=== PATIENT | female | born 1925 | race Native Hawaiian/Other Pacific Islander ===

== ENCOUNTER 2016-05-01 10:18 | Inpatient (IN) | payer OTHER ==
[~2016-05-01 10:18] MED LIST: ALLEGRA ALRG180 M1 PO; AMLO5TAB PO; AMOX500C85 PO; ASPIRIN325 M1 OR; CALCIUM500 M1 PO; CARV3.12 PO; CARV6.25 PO; EQL ASPIRIN325 MG OR; EQL FOLIC ACI400 MCG OR; FISH OIL1000 M1 OR; FLAX SEED OIL1300 MG OR; LEVO0.0218 PO; LEVO0.0529 PO; LISI10TA11 PO; MAGNESIUM1 TAB PO; PRADAXA150 MG OR; SIMV20TA2 PO; TRIM800T12 PO; VITAMIN D2000 UNIT PO
== END 2016-06-01 08:00 | disposition still patient (30) ==
LOC: PAVC 10:18
PROVIDERS: ADMIT Internal Medicine
DX: Z51.89 Encounter for other specified aftercare (principal)

== ENCOUNTER 2016-06-01 09:00 | Inpatient (IN) | payer OTHER ==
[~2016-06-01] VITALS: Ht 170.2 cm; Wt 59.0 kg
== END 2016-07-02 12:36 | disposition still patient (30) ==
LOC: PAVC 09:00
PROVIDERS: ADMIT Internal Medicine
DX: Z51.89 Encounter for other specified aftercare (principal)
CPT/HCPCS: J0696

== ENCOUNTER 2016-06-13 16:17 | Outpatient (CLI) | payer OTHER, BC | END 2016-06-13 21:44 | disposition home or self-care (01) | LOC: LAB 16:17 | DX: N39.0 Urinary tract infection, site not specified (principal) | CPT/HCPCS: 81000; 87077; 87086; 87088; 87186 ==

== ENCOUNTER 2016-06-16 13:54 | Outpatient (CLI) | payer OTHER, BC ==
[~2016-06-16] VITALS: Ht 152.4 cm; Wt 1.8 kg
[2016-06-16 13:55] VITALS: BP 91/45; TEMP 98.5
== END 2016-06-16 22:11 | disposition home or self-care (01) ==
LOC: INF 13:54
DX: N39.0 Urinary tract infection, site not specified (principal)
CPT/HCPCS: 96365; J0696

== ENCOUNTER 2016-06-17 13:51 | Outpatient (CLI) | payer OTHER, BC ==
[2016-06-17 14:00] VITALS: BP 94/51; TEMP 98.5
[2016-06-17 14:50] VITALS: BP 99/54; TEMP 98.4
== END 2016-06-17 14:50 | disposition home or self-care (01) ==
LOC: INF 13:51
DX: N39.0 Urinary tract infection, site not specified (principal)
CPT/HCPCS: 96365; J0696

== ENCOUNTER 2016-06-18 14:22 | Outpatient (CLI) | payer OTHER, BC ==
[~2016-06-18] VITALS: Ht 170.2 cm; Wt 59.0 kg
[2016-06-18 14:30] VITALS: BP 95/49; TEMP 97.7
[2016-06-18 15:20] VITALS: BP 102/56; TEMP 97.6
== END 2016-06-18 19:35 | disposition home or self-care (01) ==
LOC: INF 14:22
DX: N39.0 Urinary tract infection, site not specified (principal)
CPT/HCPCS: 96365; J0696

== ENCOUNTER 2016-06-19 14:15 | Outpatient (CLI) | payer OTHER, BC ==
[2016-06-19 14:20] VITALS: BP 128/72; TEMP 97.7
[2016-06-19 15:29] VITALS: BP 109/69; TEMP 97.7
== END 2016-06-19 19:20 | disposition home or self-care (01) ==
LOC: INF 14:15
DX: N39.0 Urinary tract infection, site not specified (principal)
CPT/HCPCS: 96365; J0696

== ENCOUNTER 2016-06-20 13:59 | Outpatient (CLI) | payer OTHER, BC ==
[~2016-06-20] VITALS: Ht 170.2 cm; Wt 59.0 kg
[2016-06-20 14:34] VITALS: BP 105/57; TEMP 98.6
== END 2016-06-20 15:10 | disposition home or self-care (01) ==
LOC: INF 13:59
DX: N39.0 Urinary tract infection, site not specified (principal)
CPT/HCPCS: 96365; J0696

== ENCOUNTER 2016-06-21 13:09 | Outpatient (CLI) | payer OTHER, BC | END 2016-06-21 17:16 | disposition home or self-care (01) | LOC: INF 13:09 | DX: N39.0 Urinary tract infection, site not specified (principal) | CPT/HCPCS: 96365; J0696 ==

== ENCOUNTER 2016-06-22 17:26 | Outpatient (CLI) | payer OTHER, BC | END 2016-06-22 19:11 | disposition home or self-care (01) | LOC: INF 17:26 | DX: N39.0 Urinary tract infection, site not specified (principal) | CPT/HCPCS: 96365; J0696 ==

== ENCOUNTER 2016-07-02 12:56 | Inpatient (IN) | payer OTHER | END 2016-07-30 13:21 | disposition still patient (30) | LOC: PAVC 12:56 | PROVIDERS: ADMIT Internal Medicine | DX: Z51.89 Encounter for other specified aftercare (principal) ==

== ENCOUNTER 2016-07-30 13:40 | Inpatient (IN) | payer OTHER | END 2016-08-30 08:13 | disposition still patient (30) | LOC: PAVC 13:40 | PROVIDERS: ADMIT Internal Medicine | DX: Z51.89 Encounter for other specified aftercare (principal) ==

== ENCOUNTER 2016-08-01 04:45 | Outpatient (CLI) | payer OTHER ==
[2016-08-01 05:46] LABS: PLATELET COUNT 465 K/uL (152-353)
[2016-08-01 06:25] LABS: POTASSIUM 4.8 mmol/L (3.6-5.2)
== END 2016-08-01 19:11 | disposition home or self-care (01) ==
LOC: LAB 04:45
PROVIDERS: Internal Medicine
DX: I48.91 Unspecified atrial fibrillation (principal); I63.50 Cerebral infarction due to unspecified occlusion or stenosis of unspecified cerebral artery
CPT/HCPCS: 80053; 82746; 84443; 85027

== ENCOUNTER 2016-08-12 16:24 | Outpatient (CLI) | payer OTHER, BC ==
[2016-08-12 18:26] LABS: POTASSIUM 4.9 mmol/L (3.6-5.2)
[2016-08-12 18:31] LABS: PLATELET COUNT 469 K/uL (152-353)
== END 2016-08-12 19:34 | disposition home or self-care (01) ==
LOC: LAB 16:24 → RAD 16:24 → LAB 19:34
PROVIDERS: Internal Medicine
DX: R07.89 Other chest pain (principal); R79.89 Other specified abnormal findings of blood chemistry; R82.99 Other abnormal findings in urine; N39.0 Urinary tract infection, site not specified
CPT/HCPCS: 80053; 81000; 85027; 87077; 87086; 87088; 87186

== ENCOUNTER 2016-08-15 13:50 | Outpatient (CLI) | payer OTHER, BC ==
[~2016-08-15] VITALS: Ht 152.4 cm; Wt 1.8 kg
[2016-08-15 14:05] VITALS: BP 115/57; TEMP 98.3
== END 2016-08-15 15:30 | disposition home or self-care (01) ==
LOC: INF 13:50
DX: N39.0 Urinary tract infection, site not specified (principal)
CPT/HCPCS: 96365; J0696

== ENCOUNTER 2016-08-16 09:38 | Outpatient (CLI) | payer OTHER, BC | END 2016-08-16 10:38 | disposition home or self-care (01) | LOC: INF 09:38 | DX: N39.0 Urinary tract infection, site not specified (principal) | CPT/HCPCS: 96365; J0696 ==

== ENCOUNTER 2016-08-17 08:36 | Outpatient (CLI) | payer OTHER, BC | END 2016-08-17 18:54 | disposition home or self-care (01) | LOC: INF 08:36 | DX: N39.0 Urinary tract infection, site not specified (principal) | CPT/HCPCS: 96365; J0696 ==

== ENCOUNTER 2016-08-18 09:47 | Outpatient (CLI) | payer OTHER, BC ==
[~2016-08-18] VITALS: Ht 170.2 cm; Wt 61.0 kg
[2016-08-18 10:00] VITALS: BP 110/56; TEMP 98.1
== END 2016-08-18 19:20 | disposition home or self-care (01) ==
LOC: INF 09:47
DX: N39.0 Urinary tract infection, site not specified (principal)
CPT/HCPCS: 96365; J0696

== ENCOUNTER 2016-08-19 10:29 | Outpatient (CLI) | payer OTHER, BC ==
[~2016-08-19] VITALS: Ht 170.2 cm; Wt 60.8 kg
[2016-08-19 10:40] VITALS: BP 98/76; TEMP 97.7
[2016-08-19 11:30] VITALS: BP 121/67; TEMP 97.7
== END 2016-08-19 19:14 | disposition home or self-care (01) ==
LOC: INF 10:29
DX: N39.0 Urinary tract infection, site not specified (principal)
CPT/HCPCS: 96365; J0696

== ENCOUNTER 2016-08-21 09:05 | Outpatient (CLI) | payer OTHER, BC ==
[~2016-08-21] VITALS: Ht 170.2 cm; Wt 61.0 kg
[2016-08-21 09:10] VITALS: BP 104/51; TEMP 97.9
[2016-08-21 10:20] VITALS: BP 109/54; TEMP 97.9
== END 2016-08-21 21:01 | disposition home or self-care (01) ==
LOC: INF 09:05
DX: N39.0 Urinary tract infection, site not specified (principal)
CPT/HCPCS: 96365; J0696

== ENCOUNTER 2016-08-29 14:01 | Emergency (ER) | payer OTHER, BC ==
[~2016-08-29] VITALS: Ht 170.2 cm; Wt 62.6 kg
[2016-08-29 15:50] LABS: PLATELET COUNT 456 K/uL (152-353)
[2016-08-29 15:54] LABS: POTASSIUM 4.1 mmol/L (3.6-5.2)
[2016-08-29 17:10] VITALS: BP 125/55; TEMP 97.6
== END 2016-08-29 17:20 ==
LOC: ED 14:01
DX: G45.8 Other transient cerebral ischemic attacks and related syndromes (principal); I48.91 Unspecified atrial fibrillation
CPT/HCPCS: 36415; 80053; 81000; 85027; 93005; 99283

== ENCOUNTER 2016-08-30 08:47 | Inpatient (IN) | payer OTHER ==
[2016-09-01] MEDS ORDERED: FOLIC ACI1 PO (21:21)
[2016-09-01] MEDS ORDERED: CULTURELL3 PO (21:21)
[2016-09-01] MEDS ORDERED: MULTIVITAMI1 PO (21:22)
[2016-09-01] MEDS ORDERED: FURO20TA67 PO (21:22)
[2016-09-01] MEDS ORDERED: PROTEINE1 PO (21:23)
[2016-09-01] MEDS ORDERED: ASCO500T18 PO (21:23)
[2016-09-01] MEDS ORDERED: LISI10TA11 PO (21:24)
[2016-09-01] MEDS ORDERED: MAGNSUS68 PO (21:24)
[2016-09-01] MEDS ORDERED: TRAM50TA PO (21:25)
[2016-09-09] MEDS ORDERED: CULTURELL3 OR (18:17)
== END 2016-09-29 10:57 | disposition still patient (30) ==
LOC: PAVC 08:47
PROVIDERS: ADMIT Internal Medicine
DX: R13.10 Dysphagia, unspecified (principal); M62.81 Muscle weakness (generalized); R65.20 Severe sepsis without septic shock; R47.01 Aphasia; N39.0 Urinary tract infection, site not specified; J90 Pleural effusion, not elsewhere classified; I50.9 Heart failure, unspecified
CPT/HCPCS: 99283

== ENCOUNTER 2016-08-31 08:38 | Emergency (ER) | payer OTHER ==
[~2016-08-31] VITALS: Ht 172.7 cm; Wt 61.7 kg
[2016-08-31 09:56] VITALS: BP 142/60; TEMP 98
[2016-09-01] MEDS ORDERED: CULTURELL3 PO (21:21)
[2016-09-01] MEDS ORDERED: FOLIC ACI1 PO (21:21)
[2016-09-01] MEDS ORDERED: MULTIVITAMI1 PO (21:22)
[2016-09-01] MEDS ORDERED: FURO20TA67 PO (21:22)
[2016-09-01] MEDS ORDERED: ASCO500T18 PO (21:23)
[2016-09-01] MEDS ORDERED: PROTEINE1 PO (21:23)
[2016-09-01] MEDS ORDERED: LISI10TA11 PO (21:24)
[2016-09-01] MEDS ORDERED: MAGNSUS68 PO (21:24)
[2016-09-01] MEDS ORDERED: TRAM50TA PO (21:25)
== END 2016-08-31 10:10 ==
LOC: ED 08:38
DX: R47.81 Slurred speech (principal); Z86.73 Personal history of transient ischemic attack (TIA), and cerebral infarction without residual deficits; R20.0 Anesthesia of skin; R29.810 Facial weakness
CPT/HCPCS: 99283

== ENCOUNTER 2016-09-01 15:13 | Outpatient (CLI) | payer OTHER ==
[2016-09-01] MEDS ORDERED: CULTURELL3 PO (21:21)
[2016-09-01] MEDS ORDERED: FOLIC ACI1 PO (21:21)
[2016-09-01] MEDS ORDERED: FURO20TA67 PO (21:22)
[2016-09-01] MEDS ORDERED: MULTIVITAMI1 PO (21:22)
[2016-09-01] MEDS ORDERED: ASCO500T18 PO (21:23)
[2016-09-01] MEDS ORDERED: PROTEINE1 PO (21:23)
[2016-09-01] MEDS ORDERED: MAGNSUS68 PO (21:24)
[2016-09-01] MEDS ORDERED: LISI10TA11 PO (21:24)
[2016-09-01] MEDS ORDERED: TRAM50TA PO (21:25)
== END 2016-09-01 16:13 | disposition home or self-care (01) ==
LOC: MRI 15:13
DX: R47.81 Slurred speech (principal)

== ENCOUNTER 2016-09-01 20:59 | Observation (INO) | payer OTHER, BC ==
[~2016-09-01] VITALS: Ht 172.7 cm; Wt 61.5 kg
[2016-09-01] MEDS ORDERED: CULTURELL3 PO (21:21)
[2016-09-01] MEDS ORDERED: FOLIC ACI1 PO (21:21)
[2016-09-01] MEDS ORDERED: MULTIVITAMI1 PO (21:22)
[2016-09-01] MEDS ORDERED: FURO20TA67 PO (21:22)
[2016-09-01] MEDS ORDERED: PROTEINE1 PO (21:23)
[2016-09-01] MEDS ORDERED: ASCO500T18 PO (21:23)
[2016-09-01] MEDS ORDERED: MAGNSUS68 PO (21:24)
[2016-09-01] MEDS ORDERED: LISI10TA11 PO (21:24)
[2016-09-01] MEDS ORDERED: TRAM50TA PO (21:25)
[2016-09-01 21:29] VITALS: BP 143/89; TEMP 97.4
[2016-09-01 22:42] LABS: POTASSIUM 4.5 mmol/L (3.6-5.2)
[2016-09-02 01:27] VITALS: BP 144/64; TEMP 97.6; Ht 172.7 cm; Wt 61.5 kg
[2016-09-02 04:00] VITALS: BP 139/69; TEMP 97.5
[2016-09-02 06:00] VITALS: BP 139/69; TEMP 97.5
[2016-09-02 08:19] LABS: PLATELET COUNT 422 K/uL (152-353)
[2016-09-02 08:40] LABS: POTASSIUM 4.1 mmol/L (3.6-5.2)
[2016-09-02 12:00] VITALS: BP 139/59; TEMP 98.4
== END 2016-09-02 16:09 ==
LOC: ED 20:59 → MED/SURG 21:51 → ED 23:24 → MED/SURG 09-02 16:09
PROVIDERS: Emergency Medicine; ADMIT Specialist
DX: I63.8 Other cerebral infarction (principal); I48.91 Unspecified atrial fibrillation; R13.12 Dysphagia, oropharyngeal phase; R47.81 Slurred speech; R29.810 Facial weakness; R20.0 Anesthesia of skin; Z86.73 Personal history of transient ischemic attack (TIA), and cerebral infarction without residual deficits
CPT/HCPCS: 36415; 80048; 80053; 83735; 84100; 85027; 93005; 99220; 99283; G0378

== ENCOUNTER 2016-09-09 13:48 | Inpatient (IN) | payer OTHER, BC ==
[~2016-09-09] VITALS: Ht 172.7 cm; Wt 59.6 kg
[2016-09-09] VITALS (24 sets, daily range): BP systolic 107–152; BP diastolic 41–79; TEMP 98.3–101.8; Ht 172.7 cm; Wt 59.6 kg
[~2016-09-09 13:48] MED LIST changes: +ASCO500T18 PO; +CULTURELL3 PO; +FOLIC ACI1 PO; +FURO20TA67 PO; +MAGNSUS68 PO; +MULTIVITAMI1 PO; +PROTEINE1 PO; +TRAM50TA PO
[2016-09-09 14:33] LABS: PLATELET COUNT 409 K/uL (152-353)
[2016-09-09 14:51] LABS: PARTIAL THROMBOPLASTIN TIME 25.9 SECONDS (24.5-33.6)
[2016-09-09 15:53] LABS: POTASSIUM 4.1 mmol/L (3.6-5.2)
[2016-09-09] MEDS ORDERED: CULTURELL3 OR (18:17)
[2016-09-10] VITALS (46 sets, daily range): BP systolic 107–159; BP diastolic 41–81; TEMP 98–98.8
[2016-09-10 08:24] LABS: PLATELET COUNT 295 K/uL (152-353)
[2016-09-10 08:52] LABS: POTASSIUM 3.1 mmol/L (3.6-5.2)
[2016-09-10 22:03] LABS: POTASSIUM 4.5 mmol/L (3.6-5.2)
[2016-09-11] VITALS (44 sets, daily range): BP systolic 125–183; BP diastolic 51–104; TEMP 98.3–100.1
[2016-09-11 09:10] LABS: POTASSIUM 4.1 mmol/L (3.6-5.2)
[2016-09-11 09:13] LABS: PLATELET COUNT 336 K/uL (152-353)
[2016-09-12] VITALS (24 sets, daily range): BP systolic 121–165; BP diastolic 53–74; TEMP 97.5–99.2
[2016-09-12 06:38] LABS: POTASSIUM 3.6 mmol/L (3.6-5.2)
[2016-09-12 12:18] LABS: PLATELET COUNT 368 K/uL (152-353)
[2016-09-13 07:10] LABS: POTASSIUM 3.4 mmol/L (3.6-5.2); SODIUM 139 mmol/L (136-145)
[2016-09-13 08:00] VITALS: BP 175/80; TEMP 98
[2016-09-13 09:10] LABS: PLATELET COUNT 348 K/uL (152-353)
[2016-09-13 12:00] VITALS: BP 193/93; TEMP 97.8
[2016-09-13 20:00] VITALS: BP 160/67; TEMP 97.3
[2016-09-14 05:50] LABS: PLATELET COUNT 391 K/uL (152-353)
[2016-09-14 06:09] LABS: POTASSIUM 3.1 mmol/L (3.6-5.2); SODIUM 140 mmol/L (136-145)
[2016-09-14 08:00] VITALS: BP 181/96; TEMP 97.5
[2016-09-14 12:00] VITALS: BP 178/98; TEMP 98
[2016-09-14 16:00] VITALS: BP 182/88; TEMP 97.9
[2016-09-14 20:00] VITALS: BP 177/96; TEMP 98
[2016-09-15 04:00] VITALS: BP 179/88; TEMP 97.6
[2016-09-15 07:44] LABS: PLATELET COUNT 436 K/uL (152-353)
[2016-09-15 08:00] VITALS: BP 142/61; TEMP 97.3
[2016-09-15 11:33] VITALS: BP 119/98; TEMP 97.6
[2016-09-15 16:00] VITALS: BP 146/69; TEMP 98.8
[2016-09-15 20:00] VITALS: BP 181/82; TEMP 98
[2016-09-16] VITALS: BP 129/54; TEMP 98.3
[2016-09-16 04:00] VITALS: BP 139/67; TEMP 98.6
[2016-09-16 05:26] LABS: POTASSIUM 3.7 mmol/L (3.6-5.2)
[2016-09-16 05:34] LABS: PLATELET COUNT 436 K/uL (152-353)
[2016-09-16 08:00] VITALS: BP 172/80; TEMP 97.9
[2016-09-16 12:00] VITALS: BP 191/80; TEMP 98
[2016-09-16 16:00] VITALS: BP 156/69; TEMP 97.9
[2016-09-16 20:00] VITALS: BP 190/83; TEMP 97.6
[2016-09-17 00:16] VITALS: BP 164/73; TEMP 97.4
[2016-09-17 04:00] VITALS: BP 171/80; TEMP 97.8
[2016-09-17 04:56] LABS: POTASSIUM 3.5 mmol/L (3.6-5.2); SODIUM 137 mmol/L (136-145)
[2016-09-17 05:02] LABS: PLATELET COUNT 450 K/uL (152-353)
[2016-09-17 07:54] VITALS: BP 190/84; TEMP 98
[2016-09-17 12:00] VITALS: BP 141/74; TEMP 98.5
[2016-09-17 16:00] VITALS: BP 166/82; TEMP 97.7
== END 2016-09-17 16:50 | DRG 690 ==
LOC: ED 13:48 → ICU 16:00 → MED/SURG 09-12 20:19
PROVIDERS: Emergency Medicine; ADMIT Emergency Medicine
DX: N39.0 Urinary tract infection, site not specified (principal); R65.10 Systemic inflammatory response syndrome (SIRS) of non-infectious origin without acute organ dysfunction; J90 Pleural effusion, not elsewhere classified; J98.11 Atelectasis; M48.54XA Collapsed vertebra, not elsewhere classified, thoracic region, initial encounter for fracture; M48.56XA Collapsed vertebra, not elsewhere classified, lumbar region, initial encounter for fracture; Q45.3 Other congenital malformations of pancreas and pancreatic duct; S22.31XA Fracture of one rib, right side, initial encounter for closed fracture; I69.390 Apraxia following cerebral infarction; I48.91 Unspecified atrial fibrillation; D72.828 Other elevated white blood cell count; R41.82 Altered mental status, unspecified; J32.2 Chronic ethmoidal sinusitis; M48.04 Spinal stenosis, thoracic region; R01.1 Cardiac murmur, unspecified; R59.1 Generalized enlarged lymph nodes; B96.20 Unspecified Escherichia coli [E. coli] as the cause of diseases classified elsewhere
CPT/HCPCS: 36415; 51702; 80048; 80053; 81000; 82310; 82550; 83605; 83615; 83735; 84100; 84132; 84484; 85027; 85610; 85651; 85730; 86160; 87040; 87077; 87086; 87088; 87186; 87804; 93005; 96361; 96365; 96368; 96375; 99285; C1768; J0610; J0696; J1940; J3475; J3480; J3490; Q9963

== ENCOUNTER 2016-09-27 14:37 | Outpatient (CLI) | payer OTHER, BC ==
[~2016-09-27 14:37] MED LIST changes: +CULTURELL3 OR
== END 2016-09-27 19:08 | disposition home or self-care (01) ==
LOC: LAB 14:37
DX: Z16.24 Resistance to multiple antibiotics (principal)
CPT/HCPCS: 87081

== ENCOUNTER 2016-09-28 11:00 | Outpatient (CLI) | payer OTHER, BC | END 2016-09-28 13:00 | disposition home or self-care (01) | LOC: CT 11:00 | DX: G44.319 Acute post-traumatic headache, not intractable (principal); W19.XXXA Unspecified fall, initial encounter ==

== ENCOUNTER 2016-09-29 00:10 | Outpatient (CLI) | payer OTHER, BC | END 2016-09-29 19:38 | disposition home or self-care (01) | LOC: RAD 00:10 | DX: G44.89 Other headache syndrome (principal); W19.XXXA Unspecified fall, initial encounter; Y93.89 Activity, other specified; Y92.128 Other place in nursing home as the place of occurrence of the external cause ==

== ENCOUNTER 2016-09-29 12:03 | Inpatient (IN) | payer OTHER | END 2016-10-30 10:46 | disposition still patient (30) | LOC: PAVC 12:03 | PROVIDERS: ADMIT Internal Medicine | DX: Z51.89 Encounter for other specified aftercare (principal) ==

== ENCOUNTER 2016-10-17 15:57 | Outpatient (CLI) | payer OTHER | END 2016-10-17 17:05 | disposition home or self-care (01) | LOC: LAB 15:57 | DX: R82.99 Other abnormal findings in urine (principal) | CPT/HCPCS: 81000 ==

== ENCOUNTER 2016-10-18 14:21 | Outpatient (CLI) | payer OTHER, BC | END 2016-10-18 19:52 | disposition home or self-care (01) | LOC: LAB 14:21 | DX: R82.99 Other abnormal findings in urine (principal) | CPT/HCPCS: 87077; 87086; 87088; 87186 ==

== ENCOUNTER 2016-10-23 19:29 | Outpatient (CLI) | payer OTHER, BC | END 2016-10-23 19:52 | disposition home or self-care (01) | LOC: LAB 19:29 | DX: R82.99 Other abnormal findings in urine (principal) | CPT/HCPCS: 81000; 87088 ==

== ENCOUNTER 2016-10-29 03:50 | Outpatient (CLI) | payer OTHER, BC | END 2016-10-29 05:00 | disposition home or self-care (01) | LOC: LAB 03:50 | DX: N39.0 Urinary tract infection, site not specified (principal) | CPT/HCPCS: 81000 ==

== ENCOUNTER 2016-10-30 11:03 | Inpatient (IN) | payer OTHER | END 2016-11-29 16:09 | disposition still patient (30) | LOC: PAVC 11:03 | PROVIDERS: ADMIT Internal Medicine | DX: Z51.89 Encounter for other specified aftercare (principal) ==

== ENCOUNTER 2016-11-05 17:07 | Outpatient (CLI) | payer OTHER | END 2016-11-05 18:15 | disposition home or self-care (01) | LOC: RAD 17:07 | DX: S70.01XD Contusion of right hip, subsequent encounter (principal) ==

== ENCOUNTER 2016-11-28 13:47 | Outpatient (CLI) | payer OTHER, BC | END 2016-11-28 19:09 | disposition home or self-care (01) | LOC: RAD 13:47 | DX: M25.531 Pain in right wrist (principal); M79.641 Pain in right hand ==

== ENCOUNTER 2016-11-29 16:35 | Inpatient (IN) | payer OTHER | END 2016-12-30 13:00 | disposition still patient (30) | LOC: PAVC 16:35 | PROVIDERS: ADMIT Internal Medicine | DX: Z51.89 Encounter for other specified aftercare (principal) ==

== ENCOUNTER 2016-12-30 14:10 | Inpatient (IN) | payer OTHER | END 2017-01-30 09:46 | disposition still patient (30) | LOC: PAVC 14:10 | PROVIDERS: ADMIT Internal Medicine | DX: Z51.89 Encounter for other specified aftercare (principal) ==

== ENCOUNTER 2017-01-30 10:32 | Inpatient (IN) | payer OTHER | END 2017-03-01 09:37 | disposition still patient (30) | LOC: PAVC 10:32 | PROVIDERS: ADMIT Internal Medicine | DX: Z51.89 Encounter for other specified aftercare (principal) ==

== ENCOUNTER 2017-02-05 06:09 | Outpatient (CLI) | payer OTHER ==
[2017-02-05 06:34] LABS: PLATELET COUNT 352 K/uL (152-353)
[2017-02-05 06:51] LABS: POTASSIUM 4.3 mmol/L (3.6-5.2)
== END 2017-02-05 07:10 | disposition home or self-care (01) ==
LOC: LAB 06:09
PROVIDERS: Internal Medicine
DX: I10 Essential (primary) hypertension (principal); I48.91 Unspecified atrial fibrillation; I63.50 Cerebral infarction due to unspecified occlusion or stenosis of unspecified cerebral artery
CPT/HCPCS: 36415; 80053; 82746; 84443; 85027